=== PATIENT | male | born 1950 | race Caucasian/White ===

== ENCOUNTER → 2022-05-12 | Outpatient (CLI) | payer MEDICARE, OTHER | LOC: M WHC 05-08 10:14 | PROVIDERS: ATTEND Nurse Practitioner Family | DX: I50.9 Heart failure, unspecified (principal); Z95.811 Presence of heart assist device ==

== ENCOUNTER → 2025-06-08 | Outpatient (CLI) | payer MEDICARE, OTHER | LOC: M WUC 13:47 | PROVIDERS: ATTEND Nurse Practitioner Family | DX: I50.9 Heart failure, unspecified (principal); Z95.811 Presence of heart assist device ==